=== PATIENT | female | born 1930 | race Caucasian/White ===

== ENCOUNTER 2020-02-05 00:09 | Inpatient (IN) | payer MEDICARE, OTHER ==
[~2020-02-05] VITALS: Ht 167.6 cm; Wt 73.3 kg
[2020-02-05] VITALS (7 sets, daily range): BP systolic 141–203; BP diastolic 69–86
[~2020-02-05 00:09] MED LIST: CELE200C PO; DOCU100C28 PO; HYDR-2679 PO; IBUP-1060 PO; WARF5TAB2 PO
--- NOTE | 2020-02-05 00:53 | PHYS DOC ---
Past Medical History Past Medical History: No Pertinent History Past Surgical History: Knee Replacement Additional Past Surgical Histo: b/l knee replacement Smoking Status: Former Smoker Alcohol Use: None Drug Use: None General Adult EDM: Chief Complaint: KNEE INJURY HPI: HPI: 89-year-old female presents for left knee pain awoke her from sleep 2 hours ago. She states that the pain is excruciating and inhibits her from moving her at all. She rates the pain as a 10 out of 10 and at that is the worst pain she is ever felt. The pain is localized anteriorly to her left knee and does not radiate anywhere. Worse with ROM and palpation. The pain is achy but sharp when touched or the knees moved at all. Reports increased swelling to left knee in comparison to right knee. Denies known trauma. Denies erythema. Review of Systems: Review of Systems: Constitutional: Denies fever or chills Eyes: Denies redness or eye pain HENT: Denies nasal congestion or sore throat Respiratory: Denies cough or shortness of breath Cardiovascular: Denies chest pain or palpitations GI: Denies abdominal pain, nausea, or vomiting : Denies dysuria or hematuria Musculoskeletal: Denies back pain; reports left knee pain Integument: Denies rash or skin lesions Neurologic: Denies headache, focal weakness or sensory changes Complete systems were reviewed and found to be within normal limits, except as documented in this note. Allergies: Allergies: Allergies Coded Allergies Type Severity Reaction Last Updated Verified No Known Drug Allergies 11/19/15 No Physical Exam: PE: Constitutional: Well developed, well nourished, uncomfortable, non-toxic appearance HENT: Normocephalic, atraumatic Eyes: Conjunctiva normal, no discharge Neck: Normal range of motion, supple Lungs & Thorax: No respiratory distress. Equal rise and fall of chest bilaterally Abdomen: Soft, no tenderness; pelvis stable and nontender Skin: Warm, dry, no erythema, no rash Extremities: Left knee pain reported. Left knee swollen, limited range of motion compared to right knee. Patient has had bilateral knee replacements Neurologic: Alert and oriented X 3, normal motor function, normal sensory function, no focal deficits noted Psychologic: Affect normal, judgment normal EKG: EKG: [] Radiology/Procedures: Radiology/Procedures: PROCEDURE: KNEE LEFT 3V Left knee x-rays 3 views HISTORY: Left knee pain and swelling unable to extend the knee. FINDINGS: Total knee arthroplasty. No bone lysis underlying the hardware to suggest loosening. No periprosthetic fracture. No dislocation. Soft tissues are unremarkable. IMPRESSION: No acute osseous injury. Arthroplasty noted. Electronically signed by: Cayden Trivedi MD (02/05/2020 2:06 AM) [facility] – [place] Course & Med Decision Making: Course & Med Decision Making Patient presented with left knee pain that was sudden onset and awoke her from sleep. The knee was diffusely tender to palpation and had extremely limited range of motion. Patient stated that she cannot walk on her own, even with assistance of a walker. Patient is afraid that if she were to go home she would most likely fall because of her lack of mobility as result of her knee pain. Images of the knee showed no effusion or damage to the bone/knee replacement components. We spoke to patient regarding possible discharge to home with follow-up with him orthopedist, but patient concerned due to significance of pain and concern for fall. Because of her age, limited range of motion, and lack of mobility he believed it was the best course of action to admit her to the hospital for further observation and pain control. Labs obtained and posted to chart. KARTHIK bandage applied to knee for support. Patient requiring admission for further evaluation and treatment. Discussed with Dr. Waldron (hospitalist) who is in agreement with admission. Consult placed to orthopedics. Discussed findings and plan with patient and family, who acknowledge understanding and agreement. Dragon Disclaimer: Dragon Disclaimer: This electronic medical record was generated, in whole or in part, using a voice recognition dictation system. Splinting Splinting : Location: left knee Pre-Made Type: KARTHIK bandage Pre-Proc Neuro Vasc Exam: normal Post-Proc Neuro Vasc Exam: normal, unchanged from pre-exam Departure Departure Impression: Primary Impression: Knee pain, left Qualified Codes: M25.562 - Pain in left knee Additional Impression: Intractable pain Disposition: ADMITTED INPATIENT Admitting Physician: JORDI (Chivo) Condition: STABLE Referrals: RAMON CLARK MD (PCP) Justicifation of Admission Dx: Justifications for Admission: Justification of Admission Dx: Yes Comments: Intractable left knee pain JOSE REICH DO Feb 05, 2020 00:53
[2020-02-05] MEDS ORDERED: fentaNYL PF VIAL 100 MCG/2 ML VIAL IVP ONE (01:15)
[2020-02-05] MEDS ORDERED: KETOROLAC 15 MG/ML VIAL. IVP ONE (01:15)
[2020-02-05] MEDS ORDERED: DEXAMETHASONE 4 MG TABLET PO ONE (01:15)
[2020-02-05] MEDS ORDERED: ONDANSETRON PF 4 MG/2 ML VIAL. IV PRN (01:45)
[2020-02-05] MEDS ORDERED: fentaNYL PF VIAL 100 MCG/2 ML VIAL IV PRN (01:45)
--- NOTE | 2020-02-05 02:09 | RAD ---
Left knee x-rays 3 views HISTORY: Left knee pain and swelling unable to extend the knee. FINDINGS: Total knee arthroplasty. No bone lysis underlying the hardware to suggest loosening. No periprosthetic fracture. No dislocation. Soft tissues are unremarkable. IMPRESSION: No acute osseous injury. Arthroplasty noted. Electronically signed by: Cayden Trivedi MD (02/05/2020 2:06 AM) [facility]
[2020-02-05 02:53] LABS: BASO # 0.1 x10^3/uL (0.0-0.2); BASO % 1 % (0-3); EOS # 0.2 x10^3/uL (0.0-0.7); EOS % 2 % (0-3); HEMATOCRIT 38.1 % (36.0-47.0); LYMPH # 1.5 x10^3/uL (1.0-4.8); LYMPH % 16 % (24-48); MEAN CORPUSCULAR HEMOGLOBIN 29 pg (25-35); MEAN CORPUSCULAR HGB CONC 34 g/dL (31-37); MEAN CORPUSCULAR VOLUME 85 fL (79-100); MONO # 0.7 x10^3/uL (0.0-1.1); MONO % 7 % (0-9); NEUT # 7.2 x10^3/uL (1.8-7.7); NEUT % 75 % (31-73); PLATELET COUNT 206 x10^3/uL (140-400); RED BLOOD COUNT 4.51 x10^6/uL (3.50-5.40); RED CELL DISTRIBUTION WIDTH 15.1 % (11.5-14.5); WHITE BLOOD COUNT 9.6 x10^3/uL (4.0-11.0)
[2020-02-05 03:00] LABS: CREATININE 0.7 mg/dL (0.6-1.0); GFR 79.2; POTASSIUM 4.1 mmol/L (3.5-5.1)
[2020-02-05 03:06] LABS: ALBUMIN 3.4 g/dL (3.4-5.0); ALBUMIN/GLOBULIN RATIO 1.1 (1.0-1.7); TOTAL BILIRUBIN 0.4 mg/dL (0.2-1.0); TOTAL PROTEIN 6.6 g/dL (6.4-8.2)
[2020-02-05] MEDS ORDERED: IBUP100O25 PO (03:46)
--- NOTE | 2020-02-05 07:15 | NUR ---
Patient admitted to room 436 at 0330 from ED, POC discussed with patient and verbalized understanding.
--- NOTE | 2020-02-05 08:30 | NUR ---
Dr. Henderson making rounds and made aware of pt's elevated BP.
[2020-02-05] MEDS ORDERED: POLYETHYLENE GLYCOL 3350 17 GM PACKET. PO PRN (08:45)
--- NOTE | 2020-02-05 08:51 | PDOC1 ---
History and Physical Date of Admission Date of Admission DATE: 02/05/20 TIME: 08:47 Source Source: Chart review, Patient History of Present Illness History of Present Illness MS. Mckenna, is a 89-year-old female presents for acute left knee pain. The pain was severe, 10/10, and sudden, and awoke her from sleep. "they almost had to put me in a straight jacket" pain is a little better this AM adn she an move it a little, about 30 degrees ROM without much pain, prior total knee with Dr. Forbes here, awhile ago The pain is localized anteriorly to her left knee and does not radiate anywhere. Worse with ROM and palpation. Denies known trauma. Denies erythema . Past Medical History Cardiovascular: No pertinent hx Pulmonary: No pertinent hx GI: No pertinent hx Musculoskeletal: Osteoarthritis, Stiffness Social History Smoke: No ALCOHOL: none Drugs: None Current Problem List Problem List Problems Medical Problems: (1) Intractable pain Status: Acute (2) Knee pain, left Status: Acute Current Medications Current Medications Current Medications Dexamethasone (Decadron) 10 mg 1X ONCE PO Last administered on 02/05/20at 02:35; Start 02/05/20 at 01:15; Stop 02/05/20 at 01:16; Status DC Ketorolac Tromethamine (Toradol 15mg Vial) 10 mg 1X ONCE IVP Last administered on 02/05/20at 02:34; Start 02/05/20 at 01:15; Stop 02/05/20 at 01:16; Status DC Fentanyl Citrate (Fentanyl 2ml Vial) 50 mcg 1X ONCE IVP Last administered on 02/05/20at 01:47; Start 02/05/20 at 01:15; Stop 02/05/20 at 01:16; Status DC Ondansetron HCl (Zofran) 4 mg PRN Q8HRS PRN IV NAUSEA/VOMITING 1ST CHOICE; Start 02/05/20 at 01:45; Stop 02/06/20 at 01:44 Fentanyl Citrate (Fentanyl 2ml Vial) 25 mcg PRN Q2HRS PRN IV SEVERE PAIN 7-10; Start 02/05/20 at 01:45 Oxycodone/ Acetaminophen (Percocet 5/325) 1 tab PRN Q4HRS PRN PO MODERATE TO SEVERE PAIN; Start 02/05/20 at 08:45 Docusate Sodium (Colace) 100 mg DAILY PO ; Start 02/05/20 at 09:00 Polyethylene Glycol (miraLAX PACKET) 17 gm PRN DAILY PRN PO CONSTIPATION; Start 02/05/20 at 08:45 Active Scripts Active Reported Ibuprofen 100 Mg/5 Ml Oral.susp 200 Mg PO BID Allergies Allergies: Coded Allergies: No Known Drug Allergies (Unverified , 11/19/15) ROS General: No: Chills, Night Sweats, Fatigue, Malaise, Appetite, Other PSYCHOLOGICAL ROS: No: Anxiety, Behavioral Disorder, Concentration difficultie, Decreased libido, Depression, Disorientation, Hallucinations, Hostility, Irritablity, Memory difficulties, Mood Swings, Obsessive thoughts, Physical abuse, Sexual abuse, Sleep disturbances, Suicidal ideation, Other Eyes: No Blurry vision, No Decreased vision, No Double vision, No Dry eyes, No Excessive tearing, No Eye Pain, No Itchy Eyes, No Loss of vision, No Photophobia, No Scotomata, No Uses contacts, No Uses glasses, No Other HEENT: No: Heacaches, Visual Changes, Hearing change, Nasal congestion, Nasal discharge, Oral lesions, Sinus pain, Sore Throat, Epistaxis, Sneezing, Snoring, Tinnitus, Vertigo, Vocal changes, Other Respiratory: No: Cough, Hemoptysis, Orthopnea, Pleuritic Pain, Shortness of breath, SOB with excertion, Sputum Changes, Stridor, Tachypnea, Wheezing, Other Cardiovascular: No Chest Pain, No Palpitations, No Orthopnea, No Paroxysmal Noc. Dyspnea, No Edema, No Lt Headedness, No Other Gastrointestinal: No Nausea, No Vomiting, No Abdominal Pain, No Diarrhea, No Constipation, No Melena, No Hematochezia, No Other Genitourinary: No Dysuria, No Frequency, No Incontinence, No Hematuria, No Retention, No Discharge, No Urgency, No Pain, No Flank Pain, No Other, No , No , No , No , No , No , No Musculoskeletal: Yes Gait Disturbance, Yes Joint Pain, Yes Joint Stiffness; No Joint Swelling, No Muscle Pain, No Muscular Weakness, No Pain In:, No Swelling In:, No Other Neurological: No Behavorial Changes, No Bowel/Bladder ControlChng, No Confusion, No Dizziness, No Gait Disturbance, No Headaches, No Impaired Coord/balance, No Memory Loss, No Numbness/Tingling, No Seizures, No Speech Problems, No Tremors, No Visual Changes, No Weakness, No Other Skin: Yes Dry Skin; No Eczema, No Hair Changes, No Lumps, No Mole Changes, No Mottling, No Nail Changes, No Pruritus, No Rash, No Skin Lesion Changes, No Other, No Acne Physical Exam General: Alert, Oriented X3, Cooperative, mild distress HEENT: Atraumatic, PERRLA, Mucous membr. moist/pink Lungs: Clear to auscultation Heart: S1S2, RRR Abdomen: Soft Extremities: No clubbing, No edema, Normal pulses Skin: No rashes, No significant lesion Neuro: Normal gait, Normal speech, Normal tone, Sensation intact Psych/Mental Status: Mental status NL, Mood NL Vitals Vitals Vital Signs Date Time Temp Pulse Resp B/P (MAP) Pulse Ox O2 Delivery O2 Flow Rate FiO2 02/05/20 07:00 99.0 92 18 203/86 (125) 96 Room Air 99.0 Labs Labs Laboratory Tests Test 02/05/20 02:45 White Blood Count 9.6 x10^3/uL (4.0-11.0) Red Blood Count 4.51 x10^6/uL (3.50-5.40) Hemoglobin 13.0 g/dL (12.0-15.5) Hematocrit 38.1 % (36.0-47.0) Mean Corpuscular Volume 85 fL (79-100) Mean Corpuscular Hemoglobin 29 pg (25-35) Mean Corpuscular Hemoglobin Concent 34 g/dL (31-37) Red Cell Distribution Width 15.1 % (11.5-14.5) Platelet Count 206 x10^3/uL (140-400) Neutrophils (%) (Auto) 75 % (31-73) Lymphocytes (%) (Auto) 16 % (24-48) Monocytes (%) (Auto) 7 % (0-9) Eosinophils (%) (Auto) 2 % (0-3) Basophils (%) (Auto) 1 % (0-3) Neutrophils # (Auto) 7.2 x10^3/uL (1.8-7.7) Lymphocytes # (Auto) 1.5 x10^3/uL (1.0-4.8) Monocytes # (Auto) 0.7 x10^3/uL (0.0-1.1) Eosinophils # (Auto) 0.2 x10^3/uL (0.0-0.7) Basophils # (Auto) 0.1 x10^3/uL (0.0-0.2) Sodium Level 141 mmol/L (136-145) Potassium Level 4.1 mmol/L (3.5-5.1) Chloride Level 104 mmol/L (98-107) Carbon Dioxide Level 29 mmol/L (21-32) Anion Gap 8 (6-14) Blood Urea Nitrogen 19 mg/dL (7-20) Creatinine 0.7 mg/dL (0.6-1.0) Estimated GFR (Cockcroft-Gault) 79.2 BUN/Creatinine Ratio 27 (6-20) Glucose Level 101 mg/dL (70-99) Calcium Level 9.0 mg/dL (8.5-10.1) Magnesium Level 2.0 mg/dL (1.8-2.4) Total Bilirubin 0.4 mg/dL (0.2-1.0) Aspartate Amino Transf (AST/SGOT) 13 U/L (15-37) Alanine Aminotransferase (ALT/SGPT) 16 U/L (14-59) Alkaline Phosphatase 79 U/L (46-116) Total Protein 6.6 g/dL (6.4-8.2) Albumin 3.4 g/dL (3.4-5.0) Albumin/Globulin Ratio 1.1 (1.0-1.7) Laboratory Tests Test 02/05/20 02:45 White Blood Count 9.6 x10^3/uL (4.0-11.0) Red Blood Count 4.51 x10^6/uL (3.50-5.40) Hemoglobin 13.0 g/dL (12.0-15.5) Hematocrit 38.1 % (36.0-47.0) Mean Corpuscular Volume 85 fL (79-100) Mean Corpuscular Hemoglobin 29 pg (25-35) Mean Corpuscular Hemoglobin Concent 34 g/dL (31-37) Red Cell Distribution Width 15.1 % (11.5-14.5) Platelet Count 206 x10^3/uL (140-400) Neutrophils (%) (Auto) 75 % (31-73) Lymphocytes (%) (Auto) 16 % (24-48) Monocytes (%) (Auto) 7 % (0-9) Eosinophils (%) (Auto) 2 % (0-3) Basophils (%) (Auto) 1 % (0-3) Neutrophils # (Auto) 7.2 x10^3/uL (1.8-7.7) Lymphocytes # (Auto) 1.5 x10^3/uL (1.0-4.8) Monocytes # (Auto) 0.7 x10^3/uL (0.0-1.1) Eosinophils # (Auto) 0.2 x10^3/uL (0.0-0.7) Basophils # (Auto) 0.1 x10^3/uL (0.0-0.2) Sodium Level 141 mmol/L (136-145) Potassium Level 4.1 mmol/L (3.5-5.1) Chloride Level 104 mmol/L (98-107) Carbon Dioxide Level 29 mmol/L (21-32) Anion Gap 8 (6-14) Blood Urea Nitrogen 19 mg/dL (7-20) Creatinine 0.7 mg/dL (0.6-1.0) Estimated GFR (Cockcroft-Gault) 79.2 BUN/Creatinine Ratio 27 (6-20) Glucose Level 101 mg/dL (70-99) Calcium Level 9.0 mg/dL (8.5-10.1) Magnesium Level 2.0 mg/dL (1.8-2.4) Total Bilirubin 0.4 mg/dL (0.2-1.0) Aspartate Amino Transf (AST/SGOT) 13 U/L (15-37) Alanine Aminotransferase (ALT/SGPT) 16 U/L (14-59) Alkaline Phosphatase 79 U/L (46-116) Total Protein 6.6 g/dL (6.4-8.2) Albumin 3.4 g/dL (3.4-5.0) Albumin/Globulin Ratio 1.1 (1.0-1.7) VTE Prophylaxis Ordered VTE Prophylaxis Devices: Yes VTE Pharmacological Prophylaxi: No Assessment/Plan Assessment/Plan acute left knee pain, unable to walk, was severe pain, Ortho eval for weightbearing status, then PT and OT if able htn, probably pain driving pain, PO meds Justicifation of Admission Dx: Justifications for Admission: Justification of Admission Dx: Yes MARLEN DIEGO MD Feb 05, 2020 08:51
--- NOTE | 2020-02-05 10:16 | NUR ---
SW following. Discussed with RN, pt from home with family, cardiac diet, room air. Ortho eval pending, PT/OT pending after ortho eval. SW will continue to follow.
--- NOTE | 2020-02-05 12:46 | PDOC2 ---
CONSULT Date of Consult Date of Consult DATE: 02/05/20 TIME: 12:46 Reason for Consult Reason for Consult: Left knee pain Identification/Chief Complaint Chief Complaint Left knee pain, history of knee arthroplasty Source Source: Chart review, Patient History of Present Illness Reason for Visit: 89-year-old woman with remote left total knee arthroplasty. Sudden onset pain and difficulty walking. No fevers or signs of infection. No open wound or drainage. Seems to be getting better since she has rested in the hospital for a day. Dr. Joyner saw her and ordered therapy Past Medical History Cardiovascular: No pertinent hx Pulmonary: No pertinent hx GI: No pertinent hx Musculoskeletal: Osteoarthritis, Stiffness Past Surgical History Past Surgical History The right total hip arthroplasty was done by Dr. Joyner 11/16/2015. Past Surgical History: Total hip replacement, Total knee replacement Social History No ALCOHOL: none Drugs: None Current Problem List Problem List Problems Medical Problems: (1) Intractable pain Status: Acute (2) Knee pain, left Status: Acute Current Medications Current Medications Current Medications Dexamethasone (Decadron) 10 mg 1X ONCE PO Last administered on 02/05/20at 02:35; Start 02/05/20 at 01:15; Stop 02/05/20 at 01:16; Status DC Ketorolac Tromethamine (Toradol 15mg Vial) 10 mg 1X ONCE IVP Last administered on 02/05/20at 02:34; Start 02/05/20 at 01:15; Stop 02/05/20 at 01:16; Status DC Fentanyl Citrate (Fentanyl 2ml Vial) 50 mcg 1X ONCE IVP Last administered on 02/05/20at 01:47; Start 02/05/20 at 01:15; Stop 02/05/20 at 01:16; Status DC Ondansetron HCl (Zofran) 4 mg PRN Q8HRS PRN IV NAUSEA/VOMITING 1ST CHOICE; Start 02/05/20 at 01:45; Stop 02/06/20 at 01:44 Fentanyl Citrate (Fentanyl 2ml Vial) 25 mcg PRN Q2HRS PRN IV SEVERE PAIN 7-10; Start 02/05/20 at 01:45 Oxycodone/ Acetaminophen (Percocet 5/325) 1 tab PRN Q4HRS PRN PO MODERATE TO SEVERE PAIN; Start 02/05/20 at 08:45 Docusate Sodium (Colace) 100 mg DAILY PO ; Start 02/05/20 at 09:00 Polyethylene Glycol (miraLAX PACKET) 17 gm PRN DAILY PRN PO CONSTIPATION; Start 02/05/20 at 08:45 Active Scripts Active Reported Ibuprofen 100 Mg/5 Ml Oral.susp 200 Mg PO BID Allergies Allergies: Coded Allergies: No Known Drug Allergies (Unverified , 11/19/15) ROS Review of System General: No: Chills, Night Sweats, Fatigue, Malaise, Appetite, Other PSYCHOLOGICAL ROS: No: Anxiety, Behavioral Disorder, Concentration difficultie, Decreased libido, Depression, Disorientation, Hallucinations, Hostility, Irritablity, Memory difficulties, Mood Swings, Obsessive thoughts, Physical abuse, Sexual abuse, Sleep disturbances, Suicidal ideation, Other Eyes: No Blurry vision, No Decreased vision, No Double vision, No Dry eyes, No Excessive tearing, No Eye Pain, No Itchy Eyes, No Loss of vision, No Photophobia, No Scotomata, No Uses contacts, No Uses glasses, No Other HEENT: No: Heacaches, Visual Changes, Hearing change, Nasal congestion, Nasal discharge, Oral lesions, Sinus pain, Sore Throat, Epistaxis, Sneezing, Snoring, Tinnitus, Vertigo, Vocal changes, Other Respiratory: No: Cough, Hemoptysis, Orthopnea, Pleuritic Pain, Shortness of breath, SOB with excertion, Sputum Changes, Stridor, Tachypnea, Wheezing, Other Cardiovascular: No Chest Pain, No Palpitations, No Orthopnea, No Paroxysmal Noc. Dyspnea, No Edema, No Lt Headedness, No Other Gastrointestinal: No Nausea, No Vomiting, No Abdominal Pain, No Diarrhea, No Constipation, No Melena, No Hematochezia, No Other Genitourinary: No Dysuria, No Frequency, No Incontinence, No Hematuria, No Retention, No Discharge, No Urgency, No Pain, No Flank Pain, No Other, No , No , No , No , No , No , No Musculoskeletal: Yes Gait Disturbance, Yes Joint Pain, Yes Joint Stiffness; No Joint Swelling, No Muscle Pain, No Muscular Weakness, No Pain In:, No Swelling In:, No Other Neurological: No Behavorial Changes, No Bowel/Bladder ControlChng, No Confusion, No Dizziness, No Gait Disturbance, No Headaches, No Impaired Coord/balance, No Memory Loss, No Numbness/Tingling, No Seizures, No Speech Problems, No Tremors, No Visual Changes, No Weakness, No Other Skin: Yes Dry Skin; No Eczema, No Hair Changes, No Lumps, No Mole Changes, No Mottling, No Nail Changes, No Pruritus, No Rash, No Skin Lesion Changes, No Other, No Acne Physical Exam General: Alert, Cooperative HEENT: Atraumatic Lungs: Normal air movement Heart: Regular rate Abdomen: Soft Extremities: Normal pulses, Other (The LEFT knee shows a well-healed midline total knee scar, without drainage or ulcers. There is normal alignment, no masses and no effusion. No tenderness to palpation. Range of motion is 0-120 degrees, with typical total knee crepitus but no pain at the extremes of motion. The knee is stable to varus and valgus stress without subluxation or laxity. Muscle strength is normal (5/5) for quadriceps and hamstrings, and muscle tone is normal. The extensor mechanism is intact. Light touch sensation is intact. No edema and no varicosities. Dorsalis pedis pulse is intact and capillary refill is normal) Skin: No significant lesion MUSCULOSKELETAL: No swelling Vitals VITALS Vital Signs Date Time Temp Pulse Resp B/P (MAP) Pulse Ox O2 Delivery O2 Flow Rate FiO2 02/05/20 11:00 98.7 70 16 152/69 (96) 98 Room Air 98.7 Labs Labs Laboratory Tests Test 02/05/20 02:45 White Blood Count 9.6 x10^3/uL (4.0-11.0) Red Blood Count 4.51 x10^6/uL (3.50-5.40) Hemoglobin 13.0 g/dL (12.0-15.5) Hematocrit 38.1 % (36.0-47.0) Mean Corpuscular Volume 85 fL (79-100) Mean Corpuscular Hemoglobin 29 pg (25-35) Mean Corpuscular Hemoglobin Concent 34 g/dL (31-37) Red Cell Distribution Width 15.1 % (11.5-14.5) Platelet Count 206 x10^3/uL (140-400) Neutrophils (%) (Auto) 75 % (31-73) Lymphocytes (%) (Auto) 16 % (24-48) Monocytes (%) (Auto) 7 % (0-9) Eosinophils (%) (Auto) 2 % (0-3) Basophils (%) (Auto) 1 % (0-3) Neutrophils # (Auto) 7.2 x10^3/uL (1.8-7.7) Lymphocytes # (Auto) 1.5 x10^3/uL (1.0-4.8) Monocytes # (Auto) 0.7 x10^3/uL (0.0-1.1) Eosinophils # (Auto) 0.2 x10^3/uL (0.0-0.7) Basophils # (Auto) 0.1 x10^3/uL (0.0-0.2) Sodium Level 141 mmol/L (136-145) Potassium Level 4.1 mmol/L (3.5-5.1) Chloride Level 104 mmol/L (98-107) Carbon Dioxide Level 29 mmol/L (21-32) Anion Gap 8 (6-14) Blood Urea Nitrogen 19 mg/dL (7-20) Creatinine 0.7 mg/dL (0.6-1.0) Estimated GFR (Cockcroft-Gault) 79.2 BUN/Creatinine Ratio 27 (6-20) Glucose Level 101 mg/dL (70-99) Calcium Level 9.0 mg/dL (8.5-10.1) Magnesium Level 2.0 mg/dL (1.8-2.4) Total Bilirubin 0.4 mg/dL (0.2-1.0) Aspartate Amino Transf (AST/SGOT) 13 U/L (15-37) Alanine Aminotransferase (ALT/SGPT) 16 U/L (14-59) Alkaline Phosphatase 79 U/L (46-116) Total Protein 6.6 g/dL (6.4-8.2) Albumin 3.4 g/dL (3.4-5.0) Albumin/Globulin Ratio 1.1 (1.0-1.7) Laboratory Tests Test 02/05/20 02:45 White Blood Count 9.6 x10^3/uL (4.0-11.0) Red Blood Count 4.51 x10^6/uL (3.50-5.40) Hemoglobin 13.0 g/dL (12.0-15.5) Hematocrit 38.1 % (36.0-47.0) Mean Corpuscular Volume 85 fL (79-100) Mean Corpuscular Hemoglobin 29 pg (25-35) Mean Corpuscular Hemoglobin Concent 34 g/dL (31-37) Red Cell Distribution Width 15.1 % (11.5-14.5) Platelet Count 206 x10^3/uL (140-400) Neutrophils (%) (Auto) 75 % (31-73) Lymphocytes (%) (Auto) 16 % (24-48) Monocytes (%) (Auto) 7 % (0-9) Eosinophils (%) (Auto) 2 % (0-3) Basophils (%) (Auto) 1 % (0-3) Neutrophils # (Auto) 7.2 x10^3/uL (1.8-7.7) Lymphocytes # (Auto) 1.5 x10^3/uL (1.0-4.8) Monocytes # (Auto) 0.7 x10^3/uL (0.0-1.1) Eosinophils # (Auto) 0.2 x10^3/uL (0.0-0.7) Basophils # (Auto) 0.1 x10^3/uL (0.0-0.2) Sodium Level 141 mmol/L (136-145) Potassium Level 4.1 mmol/L (3.5-5.1) Chloride Level 104 mmol/L (98-107) Carbon Dioxide Level 29 mmol/L (21-32) Anion Gap 8 (6-14) Blood Urea Nitrogen 19 mg/dL (7-20) Creatinine 0.7 mg/dL (0.6-1.0) Estimated GFR (Cockcroft-Gault) 79.2 BUN/Creatinine Ratio 27 (6-20) Glucose Level 101 mg/dL (70-99) Calcium Level 9.0 mg/dL (8.5-10.1) Magnesium Level 2.0 mg/dL (1.8-2.4) Total Bilirubin 0.4 mg/dL (0.2-1.0) Aspartate Amino Transf (AST/SGOT) 13 U/L (15-37) Alanine Aminotransferase (ALT/SGPT) 16 U/L (14-59) Alkaline Phosphatase 79 U/L (46-116) Total Protein 6.6 g/dL (6.4-8.2) Albumin 3.4 g/dL (3.4-5.0) Albumin/Globulin Ratio 1.1 (1.0-1.7) Images Images Left knee x-ray, report reviewed, images independently reviewed. Total knee arthroplasty appears without complications. [facility] [address] [place] [address] IMAGING REPORT Signed PATIENT: DANE RUBIO JACCOUNT: [id number] : 1930 LOCATION: [address] [place] [address] AGE: 89 SEX: F EXAM STATUS: ADM IN ORD. PHYSICIAN: JOSE REICH DO REASON: pain/swelling - patient unable to straighten knee, on pillow. PROCEDURE: KNEE LEFT 3V Left knee x-rays 3 views HISTORY: Left knee pain and swelling unable to extend the knee. FINDINGS: Total knee arthroplasty. No bone lysis underlying the hardware to suggest loosening. No periprosthetic fracture. No dislocation. Soft tissues are unremarkable. IMPRESSION: No acute osseous injury. Arthroplasty noted. Electronically signed by: Yadira Trivedi MD (02/05/2020 2:06 AM) [facility] [place] DICTATED and SIGNED BY: YADIRA TRIVEDI MD DATE: 02/05/20 0206 Assessment/Plan Assessment/Plan Acute onset left knee pain, with underlying total knee arthroplasty. No apparent infection, fracture or tendon disruption. Probably something minor and mechanical, perhaps a small loose body. Physical therapy recommended. JACINTA MIRZA MD Feb 05, 2020 12:46
[2020-02-05] MEDS: DOCUSATE SODIUM 100 MG CAPSULE. PO SCH (13:00)
[2020-02-05] MEDS: oxyCODONE/APAP 5/325 1 TAB TABLET PO PRN ×2 (17:51→23:32)
[2020-02-06 03:00] VITALS: BP 144/67
[2020-02-06 07:15] VITALS: BP 142/67
[2020-02-06] MEDS: DOCUSATE SODIUM 100 MG CAPSULE. PO SCH (08:35)
[2020-02-06] MEDS: oxyCODONE/APAP 5/325 1 TAB TABLET PO PRN (08:39)
--- NOTE | 2020-02-06 09:43 | NUR ---
SW following. Discussed with RN, pt from home with family, regular diet, room air. PT/OT ordered. Dr. Joyner following. RN anticipates possible discharge home tomorrow. SW will continue to follow.
[2020-02-06 10:50] VITALS: BP 127/52
--- NOTE | 2020-02-06 12:00 | NUR ---
No c/o pain at this time. Ambulating in room with walker. Cont. monitor.
[2020-02-06 15:14] VITALS: BP 134/67
--- NOTE | 2020-02-06 16:09 | PDOC ---
PROGRESS NOTES Date of Service: DATE: 02/06/20 TIME: 16:08 Chief Complaint Chief Complaint acute left knee pain, unable to walk, was severe pain, Ortho eval for weightbearing status, then PT and OT if able htn, probably pain driving pain, PO meds Vitals Vitals Vital Signs Date Time Temp Pulse Resp B/P (MAP) Pulse Ox O2 Delivery O2 Flow Rate FiO2 02/06/20 15:14 98.7 63 18 134/67 (89) 96 Room Air 98.7 Physical Exam General: Alert, Cooperative Heart: Regular rate Abdomen: Soft Extremities: Normal pulses, Other (The LEFT knee shows a well-healed midline total knee scar, without drainage or ulcers. There is normal alignment, no masses and no effusion. No tenderness to palpation. Range of motion is 0-120 degrees, with typical total knee crepitus but no pain at the extremes of motion. The knee is stable to varus and valgus stress without subluxation or laxity. Muscle strength is normal (5/5) for quadriceps and hamstrings, and muscle tone is normal. The extensor mechanism is intact. Light touch sensation is intact. No edema and no varicosities. Dorsalis pedis pulse is intact and capillary refill is normal) Skin: No significant lesion Assessment and Plan Assessmemt and Plan Problems Medical Problems: (1) Intractable pain Status: Acute (2) Knee pain, left Status: Acute Comment Review of Relevant I have reviewed the following items vasquez (where applicable) has been applied. Labs Laboratory Tests Test 02/05/20 02:45 White Blood Count 9.6 x10^3/uL (4.0-11.0) Red Blood Count 4.51 x10^6/uL (3.50-5.40) Hemoglobin 13.0 g/dL (12.0-15.5) Hematocrit 38.1 % (36.0-47.0) Mean Corpuscular Volume 85 fL (79-100) Mean Corpuscular Hemoglobin 29 pg (25-35) Mean Corpuscular Hemoglobin Concent 34 g/dL (31-37) Red Cell Distribution Width 15.1 % (11.5-14.5) Platelet Count 206 x10^3/uL (140-400) Neutrophils (%) (Auto) 75 % (31-73) Lymphocytes (%) (Auto) 16 % (24-48) Monocytes (%) (Auto) 7 % (0-9) Eosinophils (%) (Auto) 2 % (0-3) Basophils (%) (Auto) 1 % (0-3) Neutrophils # (Auto) 7.2 x10^3/uL (1.8-7.7) Lymphocytes # (Auto) 1.5 x10^3/uL (1.0-4.8) Monocytes # (Auto) 0.7 x10^3/uL (0.0-1.1) Eosinophils # (Auto) 0.2 x10^3/uL (0.0-0.7) Basophils # (Auto) 0.1 x10^3/uL (0.0-0.2) Sodium Level 141 mmol/L (136-145) Potassium Level 4.1 mmol/L (3.5-5.1) Chloride Level 104 mmol/L (98-107) Carbon Dioxide Level 29 mmol/L (21-32) Anion Gap 8 (6-14) Blood Urea Nitrogen 19 mg/dL (7-20) Creatinine 0.7 mg/dL (0.6-1.0) Estimated GFR (Cockcroft-Gault) 79.2 BUN/Creatinine Ratio 27 (6-20) Glucose Level 101 mg/dL (70-99) Calcium Level 9.0 mg/dL (8.5-10.1) Magnesium Level 2.0 mg/dL (1.8-2.4) Total Bilirubin 0.4 mg/dL (0.2-1.0) Aspartate Amino Transf (AST/SGOT) 13 U/L (15-37) Alanine Aminotransferase (ALT/SGPT) 16 U/L (14-59) Alkaline Phosphatase 79 U/L (46-116) Total Protein 6.6 g/dL (6.4-8.2) Albumin 3.4 g/dL (3.4-5.0) Albumin/Globulin Ratio 1.1 (1.0-1.7) Medications Current Medications Dexamethasone (Decadron) 10 mg 1X ONCE PO Last administered on 02/05/20at 02:35; Start 02/05/20 at 01:15; Stop 02/05/20 at 01:16; Status DC Ketorolac Tromethamine (Toradol 15mg Vial) 10 mg 1X ONCE IVP Last administered on 02/05/20at 02:34; Start 02/05/20 at 01:15; Stop 02/05/20 at 01:16; Status DC Fentanyl Citrate (Fentanyl 2ml Vial) 50 mcg 1X ONCE IVP Last administered on 02/05/20at 01:47; Start 02/05/20 at 01:15; Stop 02/05/20 at 01:16; Status DC Ondansetron HCl (Zofran) 4 mg PRN Q8HRS PRN IV NAUSEA/VOMITING 1ST CHOICE; Start 02/05/20 at 01:45; Stop 02/06/20 at 01:44; Status DC Fentanyl Citrate (Fentanyl 2ml Vial) 25 mcg PRN Q2HRS PRN IV SEVERE PAIN 7-10; Start 02/05/20 at 01:45 Oxycodone/ Acetaminophen (Percocet 5/325) 1 tab PRN Q4HRS PRN PO MODERATE TO SEVERE PAIN Last administered on 02/06/20at 08:39; Start 02/05/20 at 08:45 Docusate Sodium (Colace) 100 mg DAILY PO Last administered on 02/06/20at 08:35; Start 02/05/20 at 09:00 Polyethylene Glycol (miraLAX PACKET) 17 gm PRN DAILY PRN PO CONSTIPATION; Start 02/05/20 at 08:45 Active Scripts Active Reported Ibuprofen 100 Mg/5 Ml Oral.susp 200 Mg PO BID Vitals/I & O Vital Sign - Last 24 Hours 02/05/20 02/05/20 02/05/20 02/05/20 17:51 19:00 19:00 20:00 Temp 98.6 98.6 Pulse 80 Resp 21 B/P (MAP) 154/69 (97) Pulse Ox 94 O2 Delivery Room Air Room Air Room Air Room Air 02/05/20 02/05/20 02/06/20 02/06/20 23:08 23:32 00:35 03:00 Temp 97.6 98.1 97.6 98.1 Pulse 70 71 Resp 20 18 18 22 B/P (MAP) 161/77 (105) 144/67 (92) Pulse Ox 96 96 97 O2 Delivery Room Air Room Air Room Air 02/06/20 02/06/20 02/06/20 02/06/20 07:15 08:00 08:39 10:50 Temp 98.0 98.1 98.0 98.1 Pulse 76 62 Resp 18 20 B/P (MAP) 142/67 (92) 127/52 (77) Pulse Ox 95 95 O2 Delivery Room Air Room Air Room Air Room Air 02/06/20 15:14 Temp 98.7 98.7 Pulse 63 Resp 18 B/P (MAP) 134/67 (89) Pulse Ox 96 O2 Delivery Room Air l Intake and Output 02/05/20 02/05/20 02/06/20 14:59 22:59 06:59 Intake Total 340 ml Output Total 0 ml Balance 340 ml 0 ml Justicifation of Admission Dx: Justifications for Admission: Justification of Admission Dx: Yes MARLEN DIEGO MD Feb 06, 2020 16:09
--- NOTE | 2020-02-06 16:25 | PDOC3 ---
Discharge Summary Visit Information Date of Admission: Feb 05, 2020 Date of Discharge: Feb 06, 2020 Final Diagnosis acute left knee pain. OA weakness Problems Medical Problems: (1) Intractable pain Status: Acute (2) Knee pain, left Status: Acute Brief Hospital Course Allergies Allergies Coded Allergies Type Severity Reaction Last Updated Verified No Known Drug Allergies 11/19/15 No Vital Signs Vital Signs Date Time Temp Pulse Resp B/P (MAP) Pulse Ox O2 Delivery O2 Flow Rate FiO2 02/06/20 15:14 98.7 63 18 134/67 (89) 96 Room Air 98.7 Lab Results Laboratory Tests Test 02/05/20 02:45 White Blood Count 9.6 x10^3/uL (4.0-11.0) Red Blood Count 4.51 x10^6/uL (3.50-5.40) Hemoglobin 13.0 g/dL (12.0-15.5) Hematocrit 38.1 % (36.0-47.0) Mean Corpuscular Volume 85 fL (79-100) Mean Corpuscular Hemoglobin 29 pg (25-35) Mean Corpuscular Hemoglobin Concent 34 g/dL (31-37) Red Cell Distribution Width 15.1 % (11.5-14.5) Platelet Count 206 x10^3/uL (140-400) Neutrophils (%) (Auto) 75 % (31-73) Lymphocytes (%) (Auto) 16 % (24-48) Monocytes (%) (Auto) 7 % (0-9) Eosinophils (%) (Auto) 2 % (0-3) Basophils (%) (Auto) 1 % (0-3) Neutrophils # (Auto) 7.2 x10^3/uL (1.8-7.7) Lymphocytes # (Auto) 1.5 x10^3/uL (1.0-4.8) Monocytes # (Auto) 0.7 x10^3/uL (0.0-1.1) Eosinophils # (Auto) 0.2 x10^3/uL (0.0-0.7) Basophils # (Auto) 0.1 x10^3/uL (0.0-0.2) Sodium Level 141 mmol/L (136-145) Potassium Level 4.1 mmol/L (3.5-5.1) Chloride Level 104 mmol/L (98-107) Carbon Dioxide Level 29 mmol/L (21-32) Anion Gap 8 (6-14) Blood Urea Nitrogen 19 mg/dL (7-20) Creatinine 0.7 mg/dL (0.6-1.0) Estimated GFR (Cockcroft-Gault) 79.2 BUN/Creatinine Ratio 27 (6-20) Glucose Level 101 mg/dL (70-99) Calcium Level 9.0 mg/dL (8.5-10.1) Magnesium Level 2.0 mg/dL (1.8-2.4) Total Bilirubin 0.4 mg/dL (0.2-1.0) Aspartate Amino Transf (AST/SGOT) 13 U/L (15-37) Alanine Aminotransferase (ALT/SGPT) 16 U/L (14-59) Alkaline Phosphatase 79 U/L (46-116) Total Protein 6.6 g/dL (6.4-8.2) Albumin 3.4 g/dL (3.4-5.0) Albumin/Globulin Ratio 1.1 (1.0-1.7) Brief Hospital Course Ms. Mckenna is a 89-year-old woman with remote left total knee arthroplasty. admit for sudden onset pain and difficulty walking. No fevers or signs of infection. No open wound or drainage. Seems to be getting better since she has rested in the hospital for a day. Dr. Joyner saw her and ordered therapy Discharge Information Condition at Discharge: Improved Follow Up: Weeks Disposition/Orders: D/C to Home Scheduled Ibuprofen (Ibuprofen) 100 Mg/5 Ml Oral.susp, 200 MG PO BID for pain, (Reported) Entered as Reported by: LACHELLE GREEN on 02/05/20345 Last Taken: Unknown Dose on 02/04/20 Last Action: New Order on 02/05/20345 by LACHELLE GREEN Justicifation of Admission Dx: Justifications for Admission: Justification of Admission Dx: Yes MARLEN DIEGO MD Feb 06, 2020 16:25
--- NOTE | 2020-02-06 17:30 | NUR ---
Discharged home accompanied by granddaughter. No prescriptions needed.
== END 2020-02-06 17:30 | disposition home or self-care (01) | DRG 556 ==
LOC: ER 00:09 → 4 NORTH 01:30 → OBSVTOIN 01:37
PROVIDERS: ADMIT Internal Medicine; ATTEND Internal Medicine
DX: M25.562 Pain in left knee (principal); M19.90 Unspecified osteoarthritis, unspecified site; Z96.653 Presence of artificial knee joint, bilateral; Z96.641 Presence of right artificial hip joint; Z87.891 Personal history of nicotine dependence
CPT/HCPCS: 36415; 73562; 80053; 83735; 85025; 96374; 96375; G0379; J1885; J3010; 97110-GP; 97116-GP; 97535-GO; 99285-25; G0378